=== PATIENT | female | born 1995 | race Two or more races ===

== ENCOUNTER 2023-02-10 15:46 | Emergency (ER) | payer MEDICAID, OTHER ==
[~2023-02-10] VITALS: Ht 175.3 cm; Wt 161.8 kg
[2023-02-10] MEDS ORDERED: cefTRIAXone SOD 1,000 MG VL IM ONE (17:00)
[2023-02-10 17:02] VITALS: BP 107/74; PULSE 119; RESP 20; TEMP 100.2; O2SAT 95
[2023-02-10] MEDS ORDERED: AZIT500T66 PO (17:42)
[2023-02-10] MEDS ORDERED: BENZ200C64 PO (17:42)
[2023-02-10] MEDS ORDERED: ALBU108A5 IN (17:42)
== END 2023-02-10 18:00 | disposition home or self-care (01) ==
LOC: ER 15:46
DX: J20.9 Acute bronchitis, unspecified (principal); E66.01 Morbid (severe) obesity due to excess calories; Z68.43 Body mass index [BMI] 50.0-59.9, adult
CPT/HCPCS: 71046

== ENCOUNTER 2023-11-25 21:24 | Emergency (ER) | payer MEDICAID ==
[~2023-11-25] VITALS: Ht 180.3 cm; Wt 175.5 kg
[~2023-11-25 21:24] MED LIST: ALBU108A5 IN; AZIT500T66 PO; BENZ200C64 PO
[2023-11-25 21:53] VITALS: BP 151/84; PULSE 100; RESP 20; TEMP 98; O2SAT 97
== END 2023-11-25 23:40 | disposition home or self-care (01) ==
LOC: ER 21:24
DX: S40.022A Contusion of left upper arm, initial encounter (principal); Z79.899 Other long term (current) drug therapy; X58.XXXA Exposure to other specified factors, initial encounter; Y93.89 Activity, other specified; Y92.89 Other specified places as the place of occurrence of the external cause; Y99.8 Other external cause status